=== PATIENT | female | born 1940 | race Caucasian/White ===

== ENCOUNTER 2016-04-24 14:28 | Emergency (ER) | payer OTHER, BC ==
[~2016-04-24] VITALS: Ht 160 cm; Wt 65.0 kg
[~2016-04-24 14:28] MED LIST: Aspirin E.C. PO; B COMPLETE1 EACH PO; BABY ASPIRIN81 M1 PO; CALCIUM 600 +1 EACH PO; DIOVAN HCT 31 TABLE1 PO; DULCOLAX5 MG PO; Diovan HCT 160/12.5 PO; Dulcolax PO; Flora-Q,Risaquad PO; LIPITOR20 MG PO; LOVAZA1 GM PO; Levaquin PO; OMEPRAZOLE40 M1 PO; OSTEO BI-FLEX1 EAC2 PO; PROVENTIL HFA6.7 GM IH; PROVENTIL,2.5 MG/0.5 IH; TENORMIN25 MG PO; TYLENOL REGULA325 MG PO; Tenormin PO; Tylenol Regular Stre PO
[2016-04-24 16:40] LABS: EOSINOPHIL (%) 0 % (0-5); HEMATOCRIT 30.7 % (36.0-46.0); IMMATURE GRANULOCYTE (%) 0.2 % (0.0-0.7); IMMATURE GRANULOCYTE COUNT 0.3 K/uL; LYMPHOCYTE COUNT 0.6 K/uL (1.0-2.8); MCH 30.4 PG (29.0-34.0); MCHC 34.9 G/DL (30.0-36.0); MEAN PLAT.VOLUME 9.6 uM^3 (9.5-12.4); MONOCYTE (%) 1.5 % (3-12); MONOCYTE COUNT 0.2 K/uL (0-0.8); NEUTROPHIL (%) 93.8 % (45-76); NEUTROPHIL COUNT 13.4 K/uL (1.8-6.4); PLATELET COUNT 383 K/uL (156-360); RBC DIS.WIDTH-CV 14.3 % (11.8-14.6); RBC DIS.WIDTH-SD 43.8 % (39-53); RED BLOOD COUNT 3.52 M/uL (3.80-5.20)
[2016-04-24 16:44] LABS: MCV 87.2 FL (83-99); WHITE BLOOD COUNT 14.2 K/uL (4.1-10.2)
[2016-04-24 16:49] LABS: CHLORIDE 97 mEq/L (99-109); POTASSIUM 3.8 mEq/L (3.7-5.4)
[2016-04-24 16:50] LABS: SODIUM 130 mEq/L (136-147)
[2016-04-24 16:53] LABS: ANION GAP 11 MEQ/L (2-14); GLUCOSE 151 mg/dL (70-99)
[2016-04-24 16:54] LABS: TOTAL BILIRUBIN 0.4 mg/dL (0.0-1.0)
[2016-04-24 16:55] LABS: ALKALINE PHOSPHATASE 62 IU/L (3-129); GFR ESTIMATE (CALCULATED) 42 mL/min/
[2016-04-24 16:57] LABS: UREA NITROGEN (BUN) 20 mg/dL (9-23)
[2016-04-24 16:59] LABS: LIPASE 86 U/L (1.0-51.0)
[2016-04-24 19:19] VITALS: BP 124/70
== END 2016-04-24 19:21 | disposition home or self-care (01) ==
LOC: EME 14:28
PROVIDERS: Emergency Medicine
DX: K85.90 Acute pancreatitis without necrosis or infection, unspecified (principal); J45.909 Unspecified asthma, uncomplicated; E78.5 Hyperlipidemia, unspecified; I10 Essential (primary) hypertension; Z79.82 Long term (current) use of aspirin
CPT/HCPCS: 80053; 83690; 85025; 99281; 99285

== ENCOUNTER 2016-12-07 08:03 | Observation (INO) | payer OTHER, BC ==
[~2016-12-07] VITALS: Ht 160 cm; Wt 70.4 kg
[2016-12-07 09:18] LABS: EOSINOPHIL (%) 2.3 % (0-5); EOSINOPHIL COUNT 0.2 K/uL (0-0.3); HEMATOCRIT 33.3 % (36.0-46.0); IMMATURE GRANULOCYTE (%) 1.5 % (0.0-0.7); IMMATURE GRANULOCYTE COUNT 0.1 K/uL; INSTRUMENT ABS NEUTROPHIL CT 7.4 K/uL; LYMPHOCYTE COUNT 0.5 K/uL (1.0-2.8); MCH 29.8 PG (29.0-34.0); MCHC 33.3 G/DL (30.0-36.0); MCV 89.5 FL (83-99); MEAN PLAT.VOLUME 8.7 uM^3 (9.5-12.4); MONOCYTE (%) 7.9 % (3-12); MONOCYTE COUNT 0.7 K/uL (0-0.8); NEUTROPHIL COUNT 7.4 K/uL (1.8-6.4); PLATELET COUNT 235 K/uL (156-360); RBC DIS.WIDTH-CV 15.1 % (11.8-14.6); RBC DIS.WIDTH-SD 49.4 % (39-53); RED BLOOD COUNT 3.72 M/uL (3.80-5.20)
[2016-12-07] MEDS ORDERED: PULMICORT FLEX90 MCG IH (09:20)
[2016-12-07 09:27] LABS: CHLORIDE 97 mEq/L (99-109); SODIUM 131 mEq/L (136-147)
[2016-12-07 09:28] LABS: MAGNESIUM 2.1 mg/dL (1.3-2.7)
[2016-12-07 09:30] LABS: GLUCOSE 106 mg/dL (70-99)
[2016-12-07 09:31] LABS: ANION GAP 13 MEQ/L (2-14)
[2016-12-07 09:32] LABS: TOTAL BILIRUBIN 0.5 mg/dL (0.0-1.0)
[2016-12-07 09:33] LABS: ALKALINE PHOSPHATASE 72 IU/L (3-129); GFR ESTIMATE (CALCULATED) 42 mL/min/
[2016-12-07 09:34] LABS: UREA NITROGEN (BUN) 25 mg/dL (9-23)
[2016-12-07] MEDS ORDERED: MESALAMINE1.2 GM PO (09:35)
[2016-12-07] MEDS ORDERED: ERGOCALCIF50000 UNIT PO (09:36)
[2016-12-07] MEDS ORDERED: FISH OIL 1,0001 EAC7 PO (09:37)
[2016-12-07 09:42] LABS: TROP-I INTERPRETATION NEGATIVE; TROPONIN-I < 0.01 ng/mL (0.0-0.30)
[2016-12-07 11:05] LABS: ADD MIUA? YES; BILIRUBIN NEGATIVE; BLOOD NEGATIVE; COLOR YELLOW ((YELLOW)); GLUCOSE (STRIP) NEGATIVE; KETONES NEGATIVE; LEUKOCYTES NEGATIVE; NITRITE POSITIVE; PROTEIN (STRIP) NEGATIVE; SPECIFIC GRAVITY 1.011 (1.000-1.030); UROBILINOGEN 0.2 MG/DL (0.2-1.0)
[2016-12-07 11:09] LABS: BACTERIA RARE /HPF; EPITHELIAL CELLS NONE SEEN /HPF; HYALINE CASTS 0-5 /LPF; MUCUS TRACE /LPF; RED BLOOD CELLS 0-5 /HPF (0-5); UCUL ADDED? NO; WHITE BLOOD CELLS 0-5 /HPF (0-5)
[2016-12-07] MEDS ORDERED: OMEGA-3 ACID ETH1 GM PO (12:38)
[2016-12-07] MEDS ORDERED: VALSARTAN-HCTZ1 EAC3 PO (12:38)
[2016-12-07] MEDS ORDERED: PROAIR HFA8.5 GM IH (12:40)
[2016-12-07] MEDS ORDERED: TENORMIN25 MG PO (12:40)
[2016-12-07] MEDS ORDERED: PREDNISONE10 MG PO (12:41)
[2016-12-07 15:46] VITALS: BP 115/58
[2016-12-07 16:33] LABS: TROP-I INTERPRETATION NEGATIVE; TROPONIN-I < 0.01 ng/mL (0.0-0.30)
[2016-12-07 19:23] VITALS: BP 94/50
[2016-12-07 23:09] VITALS: BP 108/54
[2016-12-07 23:39] LABS: TROP-I INTERPRETATION NEGATIVE; TROPONIN-I < 0.01 ng/mL (0.0-0.30)
[2016-12-08 03:50] VITALS: BP 113/59
[2016-12-08 08:43] VITALS: BP 110/59
[2016-12-08 08:52] LABS: ANION GAP 6 MEQ/L (2-14); CHLORIDE 108 MEQ/L (99-109); POTASSIUM 3.6 MEQ/L (3.7-5.4); SAMPLE HEMOLYSIS CHECK 0; SAMPLE ICTERIC CHECK 0; SAMPLE LIPEMIA CHECK 0; SODIUM 137 MEQ/L (136-147)
[2016-12-08 08:57] LABS: GFR ESTIMATE (CALCULATED) > 59 mL/min/; GLUCOSE 84 mg/dL (70-99); UREA NITROGEN (BUN) 14 mg/dL (9-23)
[2016-12-08 12:37] VITALS: BP 114/62
== END 2016-12-08 13:34 | disposition home or self-care (01) ==
LOC: EME 08:03 → 2EAST 13:25 → EDOF 13:25 → ENRESERV 13:27 → 2EAST 15:38
PROVIDERS: Emergency Medicine; Internal Medicine
DX: I95.9 Hypotension, unspecified (principal); E87.1 Hypo-osmolality and hyponatremia; I10 Essential (primary) hypertension; J45.909 Unspecified asthma, uncomplicated; K52.9 Noninfective gastroenteritis and colitis, unspecified; R50.9 Fever, unspecified; R19.7 Diarrhea, unspecified; E78.5 Hyperlipidemia, unspecified; Z90.49 Acquired absence of other specified parts of digestive tract; Z88.5 Allergy status to narcotic agent
CPT/HCPCS: 71020; 80048; 80053; 81003; 83605; 83735; 84484; 85025; 87040; 87077; 87086; 87186; 87493; 87506; 93005; 94640; 94640 76; 99202; 99281; 99285; G0378; J0696; J1650; J7030; J7050; J7512

== ENCOUNTER 2017-05-22 13:29 | Emergency (ER) | payer OTHER, BC ==
[~2017-05-22] VITALS: Ht 160 cm; Wt 56.8 kg
[~2017-05-22 13:29] MED LIST changes: +ERGOCALCIF50000 UNIT PO; +FISH OIL 1,0001 EAC7 PO; +MESALAMINE1.2 GM PO; +OMEGA-3 ACID ETH1 GM PO; +PREDNISONE10 MG PO; +PROAIR HFA8.5 GM IH; +PULMICORT FLEX90 MCG IH; +VALSARTAN-HCTZ1 EAC3 PO
[2017-05-22 13:58] LABS: HEMATOCRIT 32.7 % (36.0-46.0); HEMOGLOBIN 11.5 G/DL (11.9-15.5); MCH 29.9 PG (29.0-34.0); MCHC 35.2 G/DL (30.0-36.0); MCV 84.9 FL (83-99); PLATELET COUNT 416 K/uL (156-360); RBC DIS.WIDTH-SD 46.6 % (39-53); RED BLOOD COUNT 3.85 M/uL (3.80-5.20); WHITE BLOOD COUNT 15.4 K/uL (4.1-10.2)
[2017-05-22 14:10] LABS: CHLORIDE 88 mEq/L (99-109); SODIUM 130 mEq/L (136-147)
[2017-05-22 14:12] LABS: GLUCOSE 174 mg/dL (70-99)
[2017-05-22 14:16] LABS: CREATININE 1.2 mg/dL (0.6-1.3); GFR ESTIMATE (CALCULATED) 46 mL/min/
[2017-05-22 14:17] LABS: UREA NITROGEN (BUN) 25 mg/dL (9-23)
[2017-05-22 14:20] LABS: TROP-I INTERPRETATION NEGATIVE; TROPONIN-I < 0.01 ng/mL (0.0-0.30)
[2017-05-22 16:25] LABS: APPEARANCE CLEAR ((CLEAR)); BILIRUBIN NEGATIVE; BLOOD NEGATIVE; COLOR AMBER ((YELLOW)); GLUCOSE (STRIP) NEGATIVE; KETONES NEGATIVE; LEUKOCYTES NEGATIVE; NITRITE NEGATIVE; PROTEIN (STRIP) NEGATIVE; SPECIFIC GRAVITY 1.019 (1.000-1.030); UCUL ADDED? NO; UROBILINOGEN 0.2 MG/DL (0.2-1.0)
[2017-05-22] MEDS ORDERED: ZOFRAN ODT4 MG PO (18:36)
[2017-05-22 19:02] VITALS: BP 126/50
== END 2017-05-22 19:08 | disposition home or self-care (01) ==
LOC: EME 13:29
PROVIDERS: Emergency Medicine
DX: E86.0 Dehydration (principal); R00.2 Palpitations; E87.6 Hypokalemia; K52.9 Noninfective gastroenteritis and colitis, unspecified; E78.5 Hyperlipidemia, unspecified; J45.909 Unspecified asthma, uncomplicated; I10 Essential (primary) hypertension; Z88.5 Allergy status to narcotic agent
CPT/HCPCS: 71046; 74177; 80048; 81003; 84484; 85027; 93005; 99281; 99285; J2405; J7030